=== PATIENT | female | born 1970 | race Caucasian/White ===

== ENCOUNTER → 2024-03-08 09:18 | Outpatient (REF) | payer BC, SELFPAY | LOC: WDC 09:18 | PROVIDERS: ATTENDING PHYSICIAN Obstetrics & Gynecology Gynecology; FAMILY PHYSICIAN Family Medicine | DX: Z12.31 Encounter for screening mammogram for malignant neoplasm of breast (principal) | CPT/HCPCS: 77063; 77067 ==

== ENCOUNTER 2024-03-22 16:40 | Inpatient (IN) | payer BC, SELFPAY ==
[2024-03-22 13:05] VITALS: BP 180/100
[2024-03-22 13:24] LABS: % Basophils 0.3 % (0-2); % Eosinophils 0.1 % (0-6); % Immature Granulocytes 0.4 % (0-0.5); % Lymphocytes 12.7 % (20.5-51.1); % Monocytes 5.6 % (1.7-9.3); % Neutrophils 80.9 % (42.2-75.2); Absolute Immature Granulocytes 0.1 10^3/uL (0-0.05); Absolute Lymphocytes 1.4 10^3/uL (1.2-3.4); Absolute Monocytes 0.6 10^3/uL (0.1-0.6); Absolute Neutrophils 9.1 10^3/uL (1.4-6.5); Hematocrit 45.6 % (37.0-47.0); Hemoglobin 16.2 g/dL (12.0-16.0); Mean Corp Hgb Conc. 35.5 g/dL (33.0-37.0); Mean Corpuscular Hgb 31.1 pg (27.0-31.0); Mean Corpuscular Volume 87.5 fL (81.0-99.0); Mean Platelet Volume 9.5 fL (7.4-10.4); Nucleated Red Blood Cells % 0 %; Platelet Count 213 10^3/uL (130-400); Red Blood Cell Count 5.21 10^6/uL (4.20-5.40); Red Cell Dist. Width 11.9 % (11.5-14.5); White Blood Cell Count 11.3 10^3/uL (4.8-10.8)
[2024-03-22 13:43] LABS: INR 1.05
[2024-03-22 13:44] LABS: APTT 31.3 Sec (23.4-35.0)
[2024-03-22 13:46] LABS: ALT (SGPT) 29 U/L (0-35); AST (SGOT) 33 U/L (14-36); Albumin 4.6 g/dl (3.5-5.0); Alkaline Phosphatase 63 U/L (38-126); Blood Urea Nitrogen 14 mg/dl (7-17); Calcium 9.4 mg/dl (8.4-10.2); Carbon Dioxide 19 mmol/L (22-30); Chloride 109 mmol/L (98-107); Glucose 113 mg/dl (70-99); Potassium 4.1 mmol/L (3.5-5.1); Sodium 138 mmol/L (135-145); Total Bilirubin 0.7 mg/dl (0.2-1.3); Total Protein 7.3 g/dl (6.3-8.2); eGFR > 60.00
--- NOTE | 2024-03-22 15:10 | ED.GENMED ---
History of Present Illness
General
Chief Complaint: Rectal Bleeding
Source: patient
Exam Limitations: none
Time Seen by Provider: 03/22/24 14:55
Nursing documentation reviewed up to this point in time: agreed with
History of Present Illness
History of Present Illness:
Patient to ED with complaint of bright red rectal bleeding. States she developed nausea last night. Edwards constipated and was only able to pass a small amt of hard stool. SHe woke at 2 AM with an episode diarrhea and vomiting. States she woke up a
few hours later and reports low abd cramping followed by passing blood with clots. SHe has had 4 additional episodes of passing blood. Last episode was on arrivall to ED room. Denies fever. No further vomiting. No prior history of same. No abd.
pain, just cramping prior to passing blood. Brought self to ED for eval.
Past History
Past History
ED Past Medical History: None
ED Past Surgical History: Appendectomy, and Gynecological (hysterectomy)
Social History
Tobacco: Former smoker
Alcohol: Occasional
Drug: None
Living: with family
Phy Exam
General Physical Exam
General Presentation: well appearing and no apparent distress
General age: appears stated age
General Skin: warm and dry
General Habitus: normal
General Mental: alert
General Hydration: appears well hydrated
Cardiovascular Exam
Cardiovascular Exam: regular rate/rhythm
Pulmonary Exam
Pulmonary Exam: no respiratory distress and chest non tender
Gastrointestinal Exam
Gastrointestinal Exam: normal bowel sounds, non tender, soft, no organomegaly, non distended, no cva tenderness and other (intermittent lower abd. cramping followed by passing bright red blood. 5 episodes)
Rectal Exam: normal sphincter tone and no stool (No blood)
Musculoskeletal Exam
Musculoskeletal Exam: full ROM and neuro vasc intact
Skin Exam
Skin Exam: normal color, warm/dry and no rash
Psychiatric Exam
Psychiatric Exam: normal mood/affect
Course
Orders/Labs/Results
Orders:
Orders
03/22/24 Breakfast
Clear Liquid
At Your Request: Full Participation
03/22/24 13:17
Type+Screen Urgent
Complete Blood Count/With Diff Urgent
Comprehensive Metabolic Panel Urgent
PTT Urgent
Prothrombin Time Urgent
03/22/24 16:11
0.9% Sodium Chloride 1000 ml [Nss] 1,000 ml IV BOLUS
03/22/24 16:13
Acetaminophen [Tylenol] 1,000 mg PO NOW STA
03/22/24 16:20
Consult Gastroenterology [GASTROINTESTINAL CONSULT] Urgent
Consulting Provider: Lilian Williamson
Was physician already notified: Yes
03/22/24 16:32
Stool Culture Urgent
SHIRA Source: Feces/Stool
Specimen Description:
Stool For WBC Urgent
SHIRA Source: Feces/Stool
Specimen Description:
03/22/24 16:33
Admit/Transfer Patient As Directed
Co-Sign Provider:
Level of Care: Inpatient admission
Assign to:: Telemetry
Physician / Group: Markos
Diagnosis: GI Bleed
Reason for Telemetry: Arrhythmia
Date to Stop Telemetry: 03/25/24
Time to Stop Telemetry: 11:00
Reason for Hospitalization: IVFs, GI consult
Expected length of stay greater than two midnights?: Yes
ELOS- Estimated Length of Stay in days: 3
I certify the patient meets the requirements for IP care: Yes
Norovirus by PCR Urgent
SHIRA Source: Feces/Stool
Specimen Description:
03/22/24 16:35
PRN Pain Medication Management As Directed
May give lesser potent ordered pain med per pt: Yes
preference::
Protocol:: Medication orders for pain may be administered in a
manner that supports deferring to patient preference
when the pt is:
- Requesting an ordered lesser potent pain medication.
Least to most potent pain medications are defined
as: acetaminophen < NSAID < tramadol < opioids
(morphine, oxycodone, hydromorphone).
- Requesting a lesser dose of the same medication IF
ORDERED.
- Requesting a less intrusive route of administration
if both routes are prescribed by the provider (PO <
IV).
03/22/24 16:36
Code Status As Directed
Resuscitation Status: Full Code
03/22/24 17:47
0.9% Sodium Chloride 1000 ml [Nss] 1,000 ml IV 100 mls/hr
Ondansetron Injectable [Zofran] 4 mg IV Q6HPRN PRN
03/22/24 17:47
Activity As Directed
Activity Level: Out of Bed- Chair
I&O [Intake/ Output] As Directed
Frequency: q12h
Pneumatic Compression Sleeves As Directed
Type: Knee high
Vital Signs As Directed
Frequency: Per unit guidelines
DX Deep Vein Thrombosis Video Routine
03/22/24 20:26
H&H Routine
03/22/24 23:00
Acetaminophen [Tylenol] 650 mg PO Q4HPRN PRN
03/23/24 Breakfast
NPO
Allow oral meds: Yes
Allow clear liquids: 4hrs prior to procedure
NPO with Ice Chips: Yes
Comment: may have unrestricted clear liquid up to 4 hrs prior to scheduled procedure
Basic Metabolic Panel IN AM
Complete Blood Count/No Diff IN AM
03/25/24 11:00
DC Protocol for Telemetry ONCE
Abnormal Lab Results
03/22/24
13:17
WBC 11.3 H 10^3/uL
(4.8-10.8)
Hgb 16.2 H g/dL
(12.0-16.0)
MCH 31.1 H pg
(27.0-31.0)
Abs Immat Gran (auto) 0.1 H 10^3/uL
(0-0.05)
Absolute Neuts (auto) 9.1 H 10^3/uL
(1.4-6.5)
Neutrophils % 80.9 H %
(42.2-75.2)
Lymphocytes % 12.7 L %
(20.5-51.1)
Chloride 109 H mmol/L
(98-107)
Carbon Dioxide 19 L mmol/L
(22-30)
Glucose 113 H mg/dl
(70-99)
03/22/24 13:17
03/22/24 13:17
Vital Signs
Initial and Last Documented VS:
Initial Vital Signs
Temp Pulse Resp BP Pulse Ox
98.2 F 114 16 180/100 98
03/22/24 13:05 03/22/24 13:05 03/22/24 13:05 03/22/24 13:05 03/22/24 13:05
Last Documented Vital Signs
Temp Pulse Resp BP Pulse Ox
98.6 F 84 16 145/80 96
03/22/24 19:25 03/22/24 19:25 03/22/24 19:25 03/22/24 19:25 03/22/24 19:25
*Critical Care Note
Total Time (30-74mins, 75-104mins- exclusive of procedures): Not Applicable
Update Note
Update Note:
Patient to ED with complaint of bright red rectal bleeding with clots. Symptoms started early AM today and continue. No abdominal pain but reports transient lower abd. cramping. VSS, Afebrile. Hgb 11.4. Dr. Williamson notified via tiger text.
Will admit to hospitalist service with GI consult. Patient is agreeable to plan.
ED Attending Note
-
Portions of this chart may have been created with voice recognition software.� Occasional wrong word or��sound alike� substitutions may have occurred due to the inherent limitations of voice recognition software.
Discharge Plan
Departure
Patient Disposition: Admit
Date of Disposition: 03/22/24
Time of Disposition: 16:13
Presentation/result/management discussed w/ accepting MD/DO: Hospitalist
Patient with high blood pressure during this ER visit?: No
Condition: Fair
Covid-19: Not Applicable
Discharge Problem:
Rectal bleeding
Interventions
Interventions:
*Risk Screen - Suicide Last Done: 03/22/24 18:47
*General Assessment Last Done: 03/22/24 13:05
*Neglect/Abuse Screening Last Done: 03/22/24 13:05
ED- Fall Risk Assessment Last Done: 03/22/24 15:01
*ED COVID-19 Vaccine History Last Done: 03/22/24 18:47
*Nursing Disposition Last Done: 03/22/24 17:39
TJ-Slxwkr-Ghkbvpcodl Assessment Last Done: 03/22/24 15:01
ED- Cardiac Assessment Last Done: 03/22/24 15:01
ED- Pulmonary Assessment Last Done: 03/22/24 15:01
Discharge Date and Time
Discharge Date/Time: 03/22/24 17:39
[2024-03-22 16:26] VITALS: BP 150/68
[2024-03-22] MEDS: TYLENOL 1000 MG PO (16:29)
[2024-03-22] MEDS: NSS 1000 IV ×2 (16:30→18:45)
--- NOTE | 2024-03-22 16:33 | HPS.HSE ---
Family Physician
-
Family Physician: Yasmeen Navarro
Chief Complaint
-
Recal Bleeding
History of Present Illness
Patient is a 53 y/o female without significant past medical history who presents with rectal bleeding. Patient reports she awoke around 2am with vomiting. She then developed abdominal pain and felt like she was going to have diarrhea, but passed a
large amount of blood and clots. She reports about 6 episodes of passing blood since this morning. She reports bleeding seems less, but still passing some. She reports initially having sweats/chills, but did not take her temp at home. She
reports family member with GI symptoms last week. She recently completed a coarse of ciprofloxacin for UTI. She denies any usual food intake.
Medical History
Past Medical History
Past Medical History: Reports Other
Additional Past Medical History:
Obesity
Past Surgical History: Reports Other
Additional Past Surgical History:
Hysterectomy
Appendectomy
Oral Surgery
Social History
Tobacco: Former Smoker (Quit about 15 years ago)
Alcohol: Occasional (About once a month)
Personal:
Living: With Family
Family History
Family History: Other (Parents with diverticular disease)
Allergies / Home Medications
Allergies reflects when Allergies were last updated in [employer]
Home Medications with original date entered in [employer]
Allergy/Medication List:
Allergies
Allergy/AdvReac Type Severity Reaction Status Date / Time
levofloxacin [From Levaquin] Allergy Hives Verified 03/22/24 13:09
minerals [From Enviro Stress] Allergy Unknown Verified 03/22/24 13:09
nitrofurantoin Allergy Hives Verified 03/22/24 13:09
[From Macrobid]
papaya [Papaya] Allergy Hives Verified 03/22/24 13:09
Sulfa (Sulfonamide Allergy Hives Verified 03/22/24 13:09
Antibiotics)
[Sulfa (Sulfonamides)]
vitamin B complex and C Allergy Unknown Verified 03/22/24 13:09
[From Enviro Stress]
vitamin E (d-alpha Allergy Unknown Verified 03/22/24 13:09
tocopherol)
[From Enviro Stress]
Home Medications
cetirizine 10 mg tablet (Zyrtec) 10 mg PO DAILYPRN PRN allergies 03/22/24
tirzepatide (weight loss) 2.5 mg/0.5 mL subcutaneous pen injector (Zepbound) 2.5 mg SC MO 03/22/24
Review of Systems
-
A 12 point ROS was completed and negative except as noted: Yes
Constitutional: Reports Chills
Respiratory: Denies Cough or Trouble Breathing
Cardiac: Denies Chest Pain or Palpitations
Physical Exam
Vital Signs
Vital Signs
Temp Pulse Resp BP Pulse Ox
98.2 F 114 16 180/100 98
03/22/24 13:05 03/22/24 13:05 03/22/24 13:05 03/22/24 13:05 03/22/24 13:05
Physical Exam
General: Comfortable and Conversant
HEENT: Anicteric and Moist mucous membranes
Respiratory: Clear and Non Labored Respirations
Cardiac: S1/S2, Regular Rhythm and Tachycardia (Slightly)
GI: Soft and Non Tender
Musculoskeletal: No Clubbing, No Cyanosis and No Edema
Skin: Warm and Dry
Neuro: Awake, Alert, Oriented and Nonfocal/grossly intact
Psych: Calm
Laboratory Results
-
03/22/24 13:17
03/22/24 13:17
Laboratory Results
PT 14.0 Sec (11.4-14.6) 03/22/24 13:17
INR 1.05 03/22/24 13:17
APTT 31.3 Sec (23.4-35.0) 03/22/24 13:17
Total Bilirubin 0.7 mg/dl (0.2-1.3) 03/22/24 13:17
AST 33 U/L (14-36) 03/22/24 13:17
ALT 29 U/L (0-35) 03/22/24 13:17
Alkaline Phosphatase 63 U/L (38-126) 03/22/24 13:17
Data Reviewed
-
Lab Data: Labs Reviewed by me
Impression/Plan
-
Hematochezia, suspect infectious possibly C Diff following recent antibiotics vs diverticular (patient reports family history of diverticular disease but has never had colonoscopy herself)
-Consult GI
-Check stool culture, stool for norovirus and C Diff
-Allow clear liquids
-Monitor serial Hgb
Obesity
-Patient recently started Zepbound
DVT proph: SCDs
Code Status: Full Code
--- NOTE | 2024-03-22 17:19 | W.PN.UPDATE ---
Update Note
Progress Note Update
This note serves as an addendum to the H&P by ophthalmic technician TOBIN Connie RUTH
HPI
53F with recent UTI s/p 7 days of PO Ciproflox as of yesterday seen at ER'
- first episode of blood per rectum mixed with clot and small amount of feces with mucous
- No prior HX hemorrhoids
- One episodes of vomiting preceded the abdominal discomfort and colic followed blood mixed with mucou small feces per rectum
- denied lightheadedness
- No recent seafood meals
- no prior HX GIB
- no prior HX CDAD
- Not on blood thinner
- No recent travelling
- FHX of diverticulosis
Vital Signs
Temp Pulse Resp BP Pulse Ox
98.2 F 114 16 150/68 96
03/22/24 13:05 03/22/24 13:05 03/22/24 13:05 03/22/24 16:26 03/22/24 16:45
PE
General: Comfortable and Conversant
HEENT: Anicteric and Moist mucous membranes
Respiratory: Clear and Non Labored Respirations
Cardiac: S1/S2, Regular Rhythm and Tachycardia (Slightly)
GI: Soft and Non Tender
Musculoskeletal: No Clubbing, No Cyanosis and No Edema
Skin: Warm and Dry
Neuro: Awake, Alert, Oriented and Nonfocal/grossly intact
Psych: Calm
Laboratory Tests
03/22/24
13:17
WBC 11.3 H
Hgb 16.2 H
Chloride 109 H
Carbon Dioxide 19 L
eGFR > 60.00
ASSESSMENT & PLAN
Acute LGIB suspect mucous hematochezia DDX : C Diff colitis, Colitis NOS
Leucocytosis but afebrile
Tachycardic , Normotensive
- stool for C Diff till then hold of PO Vancomycin
- stool for Cx
- clear diet plus IVF
- Avoid anti diarrheal agents
- GI consult
Obesity
- hold Zebound ( Non formulary )
DVT Px: SCD
full code
Ip TLM
[2024-03-22 18:04] VITALS: BP 132/77
[2024-03-22 19:25] VITALS: BP 145/80
[2024-03-22 20:31] LABS: Hematocrit 45.4 % (37.0-47.0); Hemoglobin 15.3 g/dL (12.0-16.0)
[2024-03-22 23:09] VITALS: BP 119/70
--- NOTE | 2024-03-23 01:01 | PTCARENOTE ---
Assumed care of patient at change of shift. AAOx3 VSS. Pt aware of stool sample to be collected. Denies abd pain at this time. Oriented to room, call muñoz and plan of care. NPO @ OR.
[2024-03-23] MEDS: TYLENOL 650 MG PO ×3 (02:15→20:26)
[2024-03-23 03:10] VITALS: BP 116/71
[2024-03-23] MEDS: NSS 1000 IV ×2 (05:07→15:05)
[2024-03-23 07:33] VITALS: BP 123/71
[2024-03-23 07:36] LABS: Hematocrit 42.2 % (37.0-47.0); Hemoglobin 14.3 g/dL (12.0-16.0); Mean Corp Hgb Conc. 33.9 g/dL (33.0-37.0); Mean Corpuscular Volume 91.5 fL (81.0-99.0); Mean Platelet Volume 9.5 fL (7.4-10.4); Platelet Count 194 10^3/uL (130-400); Red Blood Cell Count 4.61 10^6/uL (4.20-5.40); Red Cell Dist. Width 12.3 % (11.5-14.5); White Blood Cell Count 8.5 10^3/uL (4.8-10.8)
[2024-03-23 07:48] LABS: Blood Urea Nitrogen 8 mg/dl (7-17); Calcium 8.4 mg/dl (8.4-10.2); Carbon Dioxide 21 mmol/L (22-30); Chloride 112 mmol/L (98-107); Estimated Creatinine Clearance 107 ml/min; Glucose 95 mg/dl (70-99); Potassium 3.9 mmol/L (3.5-5.1); Sodium 140 mmol/L (135-145); eGFR > 60.00
--- NOTE | 2024-03-23 08:56 | CON.GI ---
Consultation
-
Date/Time Consultation Requested: 03/23/24
Date/Time Consultation Performed: 03/23/24
Requesting Provider:
Performing Provider:
Reason for Consultation: rectal bleeding
Medical History
Chief Complaint / HPI
Chief Complaint: rectal bleeding
History of Present Illness:
This is a 53-year-old female with no significant past medical history other than recent UTI which was treated with ciprofloxacin and she finished this on Friday, family history of colon cancer-mother, prediabetic and obesity and was started on
Zepbound about 3 weeks ago who was in her usual state of health up until yesterday morning when she woke up around 4 AM and felt that she needed to use the bathroom and initially had small hard pellets of stool and then had diarrhea followed by
bloody stools. She had about 3 episodes of bloody stools presented to the emergency room and her last episode of rectal bleeding was at 4 PM yesterday. She also had vomiting yesterday which seems to have resolved. She denies any fevers or chills
no recent travel and she denies eating out recently but she does have chickens at home and she usually eats eggs from her poultry. Her daughter was sick with gastroenteritis about a week ago. She has never had a colonoscopy in the past. Currently
denies any abdominal pain, yesterday she did have cramps prior to the diarrhea. Usually only has occasional constipation prior to starting Zepbound. Denies any symptoms of reflux
Past Medical History
Past Medical History: Other (prediabetic, obesity, UTI)
Past Surgical History: Other (Hysterectomy, Appendectomy, Oral Surgery)
Social History
Tobacco: Former Smoker
Alcohol: Occasional
Drug: None
Personal:
Living: With Family
Family History
Family History: Other (mother with lung and colon cancer, MGM breast cancer)
Allergies / Home Medications
Allergy/AdvReac Type Severity Reaction Status Date / Time
levofloxacin [From Levaquin] Allergy Hives Verified 03/22/24 13:09
minerals [From Enviro Stress] Allergy Unknown Verified 03/22/24 13:09
nitrofurantoin Allergy Hives Verified 03/22/24 13:09
[From Macrobid]
papaya [Papaya] Allergy Hives Verified 03/22/24 13:09
Sulfa (Sulfonamide Allergy Hives Verified 03/22/24 13:09
Antibiotics)
[Sulfa (Sulfonamides)]
vitamin B complex and C Allergy Unknown Verified 03/22/24 13:09
[From Enviro Stress]
vitamin E (d-alpha Allergy Unknown Verified 03/22/24 13:09
tocopherol)
[From Enviro Stress]
�Medication �Instructions �Recorded
cetirizine 10 mg tablet (Zyrtec) 10 mg PO DAILYPRN PRN allergies 03/22/24
tirzepatide (weight loss) 2.5 2.5 mg SC MO (GLP-1) Receptor 03/22/24
mg/0.5 mL subcutaneous pen Agonist
injector (Zepbound)
Review of Systems
-
All other systems: A 12 pt ROS was Negative except as stated above in HPI
Vital Signs
Temp Pulse Resp BP Pulse Ox
98.3 F 84 20 123/71 96
03/23/24 07:33 03/23/24 07:33 03/23/24 07:33 03/23/24 07:33 03/23/24 07:33
Physical Exam
Exam
General: No Apparent Distress
HEENT: Normocephalic
Respiratory: Clear
Cardiac: S1/S2
GI: Soft, Non Tender, Non Distended and Normal Bowel Sounds
Musculoskeletal: No Clubbing
Skin: Warm
Neuro: Awake, Alert and Oriented
Psych: Calm
Results
WBC 8.5 10^3/uL (4.8-10.8) 03/23/24 06:56
Hgb 14.3 g/dL (12.0-16.0) 03/23/24 06:56
Hct 42.2 % (37.0-47.0) 03/23/24 06:56
MCV 91.5 fL (81.0-99.0) 03/23/24 06:56
Plt Count 194 10^3/uL (130-400) 03/23/24 06:56
Absolute Neuts (auto) 9.1 10^3/uL (1.4-6.5) H 03/22/24 13:17
PT 14.0 Sec (11.4-14.6) 03/22/24 13:17
INR 1.05 03/22/24 13:17
APTT 31.3 Sec (23.4-35.0) 03/22/24 13:17
Sodium 140 mmol/L (135-145) 03/23/24 06:56
Potassium 3.9 mmol/L (3.5-5.1) 03/23/24 06:56
Chloride 112 mmol/L (98-107) H 03/23/24 06:56
Carbon Dioxide 21 mmol/L (22-30) L 03/23/24 06:56
BUN 8 mg/dl (7-17) 03/23/24 06:56
Creatinine 0.7 mg/dL (0.6-1.0) 03/23/24 06:56
Calcium 8.4 mg/dl (8.4-10.2) 03/23/24 06:56
Total Bilirubin 0.7 mg/dl (0.2-1.3) 03/22/24 13:17
AST 33 U/L (14-36) 03/22/24 13:17
ALT 29 U/L (0-35) 03/22/24 13:17
Alkaline Phosphatase 63 U/L (38-126) 03/22/24 13:17
Diagnostic Image Results:
Prior GI Procedures:
EGD: none
Colonoscopy: none
Assessment / Plan
-
1. Nausea vomiting diarrhea followed by bloody stools most likely infectious etiology. She was also recently on ciprofloxacin will need to rule out C. difficile if she does have further episodes check stool studies, she has not had any episodes
since 4 PM yesterday. Will start her on clear liquids and advance if tolerates to low residue diet and if she has no further episodes possible DC in a.m. she is currently on IV hydration continue Zofran as needed. She will need an eventual
colonoscopy in 6 to 8 weeks.
2. Family history of colon cancer(mother) she has never had a colonoscopy in the past and will schedule in the next couple of weeks
3. She has been recently started on Zepbound and has mild constipation with it, I told her to start taking MiraLAX or magnesium as outpatient as needed she really had no symptoms of nausea vomiting on Zepbound prior to this acute illness
-
-
Thank you for consultation and allowing me to participate in the patient's care. Please call the media production support manager GI physician during the after hours with any questions or concerns.
--- NOTE | 2024-03-23 10:40 | W.PN.HOSP.TC ---
Today's Communication/Plan
-
ADAT
Monitor H&H
Stool studies if possible
Assessment / Plan
Assessment / Plan
Patient is a 53-year-old female presenting with nausea /vomiting, diarrhea over the past few days followed by urgency for defecation with GI bleeding per rectum (in the form of mixed clots and mucus). She recently had a UTI and was treated with
Cipro x 7(finished course 04/21). Hemodynamic stable in ED except for mild tachycardia. Hemoglobin stable.
Chronic conditions prior to admission:
Obesity
Pre-diabetic
History of hysterectomy, appendectomy,
Ass/plan:
# New onset hematochezia
- Differential diagnosis includes inflammatory (UC/ Chron's) versus infectious etiology (C.diff given recent antibiotic use vs colitis)
- No nausea/ vomiting at this time- on clear liquids- can ADAT
- No more GIB since being in the hospital
- GI consulted- given FH of malignant colon polyps requiring bowel resection in mother, patient will need a colonoscopy in 6-8 weeks as OP
- If patient can provide sample, stool studies can be beneficial
#Headache
-Tylenol as needed
Anticipated Discharge: Within 24 hours
Subjective/Interval History
-
Date of Service: March 23, 2024
Patient has not had any bowel movements or any GI bleeding since coming to the hospital. She denies any nausea or vomiting at this time. Denies any abdominal pain. With this complaint of occasional cramps. Also complains of a frontal headache
that responds to Tylenol.
Objective Data
-
Labs:
Laboratory Results
03/23/24
06:56
WBC 8.5
Hgb 14.3
Hct 42.2
Plt Count 194
Sodium 140
Potassium 3.9
Chloride 112 H
Carbon Dioxide 21 L
BUN 8
Creatinine 0.7
Glucose 95
Calcium 8.4
Vital Signs:
Vital Signs
Temp Pulse Resp BP Pulse Ox
98.3 F 84 20 123/71 96
03/23/24 07:33 03/23/24 07:33 03/23/24 07:33 03/23/24 07:33 03/23/24 09:00
I&O
03/22/24 03/23/24 03/24/24
06:59 06:59 06:59
Intake Total 820 / 820
Balance 820 / 820
Review of Systems
-
History Source: Patient
All other systems: Reviewed and negative
Abdomen/GI: Reports Pain (abdominal cramps)
Neuro: Reports Headache (frontal headache)
Physical Exam
-
General: Well Developed, Well Nourished, No Apparent Distress, Comfortable and Obese
HEENT: Normocephalic, Moist Mucous Membranes and Anicteric
Respiratory: Clear to Auscultation
Cardiac: Regular Rhythm and S1/S2
GI: Soft, Nontender, Nondistended and Normal Bowel Sounds
Musculoskeletal: No Clubbing, No Cyanosis and No Edema
Skin: Warm and Dry
Neuro: Awake, Alert, Oriented and AO x 3
[2024-03-23 11:18] VITALS: BP 124/68
--- NOTE | 2024-03-23 13:34 | W.PN.UPDATE ---
Update Note
Progress Note Update
I saw and evaluated the patient. I reviewed the resident�s note and agree with findings and plan as documented in the resident�s note.
Patient reports some gas discomfort. No bowel movement since the ER.
Gen: NAD, AAOx3.
Eyes: EOMI, PERRLA, no scleral icterus.
Neck: supple.
CV: RRR, +S1/S2, no m/r/g.
Resp: CTAB, no rales, wheezes, or rhonchi.
Abd: +BS, soft, NT, ND
Skin: No rashes.
Neuro: CN 2-12 intact, non-focal.
Psych: Normal mood and affect.
Bright red blood per rectum:
-Hb stable
-seen by GI, no procedures planned this admission
-Diet advanced to clear liquids
-Continue IVF support for now
-check Hb in AM
Obesity due to excess calories
Dispo: Likely d/c tomorrow.
[2024-03-23 15:19] VITALS: BP 127/80
--- NOTE | 2024-03-23 15:59 | CM ---
staffing manager reviewed patient's chart and met with patient and patient states that she lives with spouse in a 2 story home, patient is independent with adl's and ambulation, no dme, patient drives.
PCP: Dr. Yasmeen Navarro
Pharmacy [facility] [place]
Plan; Home when stable no needs.
[2024-03-23 19:25] VITALS: BP 117/76
[2024-03-23 23:21] VITALS: BP 114/58
[2024-03-24] MEDS: NSS 1000 IV (01:13)
[2024-03-24 03:30] VITALS: BP 111/75
[2024-03-24 07:44] VITALS: BP 112/86
[2024-03-24 09:00] LABS: Hemoglobin 14.6 g/dL (12.0-16.0); Mean Corp Hgb Conc. 33.2 g/dL (33.0-37.0); Mean Corpuscular Hgb 30.7 pg (27.0-31.0); Mean Corpuscular Volume 92.6 fL (81.0-99.0); Mean Platelet Volume 9.3 fL (7.4-10.4); Platelet Count 189 10^3/uL (130-400); Red Blood Cell Count 4.75 10^6/uL (4.20-5.40); Red Cell Dist. Width 12.1 % (11.5-14.5); White Blood Cell Count 7.3 10^3/uL (4.8-10.8)
--- NOTE | 2024-03-24 09:17 | W.PN.HOSP.TC ---
Today's Communication/Plan
-
Patient is medically stable for discharge today
Advised to follow-up with GI clinic in 6 to 8 weeks for outpatient colonoscopy
Assessment / Plan
Assessment / Plan
Patient is a 53-year-old female presenting with nausea /vomiting, diarrhea over the past few days followed by urgency for defecation with GI bleeding per rectum (in the form of mixed clots and mucus). She recently had a UTI and was treated with
Cipro x 7(finished course 04/21). Hemodynamic stable in ED except for mild tachycardia. Hemoglobin stable.
Chronic conditions prior to admission:
Obesity
Pre-diabetic
History of hysterectomy, appendectomy,
Ass/plan:
# New-onset hematochezia and nausea/vomiting
- Differential diagnosis includes inflammatory (UC/ Chron's) versus infectious etiology (C.diff given recent antibiotic use vs colitis)
- Nausea/ vomiting resolved-diet advanced to low residue yesterday-patient has been able to tolerate diet well
- GIB resolved since being in the hospital-No bowel movements while admitted
- Hemoglobin has been stable throughout stay without any drop
- Leukocytosis resolved
- GI consulted- given FH of malignant colon polyps requiring bowel resection in mother, patient will need a colonoscopy in 6-8 weeks as OP
- If patient could provide sample, stool studies might have been beneficial
- IV fluids can be discontinued
#Headache
-Tylenol as needed
Anticipated Discharge: Today
Subjective/Interval History
-
Date of Service: March 24, 2024
Patient mentions she is feeling good. Has not had any bowel movements during stay but does pass gas. Has not seen any more GI bleeding. No nausea or vomiting and has been tolerating low residue diet well. Denies any abdominal pain, fever or
chills.
Objective Data
-
Labs:
Laboratory Results
03/24/24
08:22
WBC 7.3
Hgb 14.6
Hct 44.0
Plt Count 189
Sodium Pending
Potassium Pending
Chloride Pending
Carbon Dioxide Pending
BUN Pending
Creatinine Pending
Glucose Pending
Calcium Pending
Vital Signs:
Vital Signs
Temp Pulse Resp BP Pulse Ox
98.2 F 78 14 112/86 99
03/24/24 07:44 03/24/24 07:44 03/24/24 07:44 03/24/24 07:44 03/24/24 07:44
I&O
03/23/24 03/24/24 03/25/24
06:59 06:59 06:59
Intake Total 820 / 820 2640 / 2640
Output Total 480 / 480
Balance 820 / 820 2160 / 2160
Review of Systems
-
History Source: Patient
All other systems: Reviewed and negative
Physical Exam
-
General: Well Developed, Well Nourished, No Apparent Distress, Comfortable and Obese
HEENT: Normocephalic, Moist Mucous Membranes and Anicteric
Respiratory: Clear to Auscultation
Cardiac: Regular Rhythm and S1/S2
GI: Soft, Nontender, Nondistended and Normal Bowel Sounds
Musculoskeletal: No Clubbing, No Cyanosis and No Edema
Skin: Warm and Dry
Neuro: Awake, Alert, Oriented and AO x 3
--- NOTE | 2024-03-24 09:17 | W.PN.HOSP.TC ---
Today's Communication/Plan
-
d/c
Assessment / Plan
Assessment / Plan
Gen: NAD, AAOx3.
Eyes: EOMI, PERRLA, no scleral icterus.
Neck: supple.
CV: remains RRR, +S1/S2, no m/r/g.
Resp: remains CTAB, no rales, wheezes, or rhonchi.
Abd: remains +BS, soft, NT, ND
Skin: No rashes.
Neuro: CN 2-12 intact, non-focal.
Psych: Normal mood and affect.
Bright red blood per rectum:
-Hb stable
-s/p IVFs
-seen by GI, no procedures planned this admission
-pt tolerating solid food
-agree with GI that this was infectious in etiology. Case discussed with Dr. Williamson and the pt is cleared for d/c with outpt follow up for colonoscopy.
Obesity due to excess calories
Total time spent on d/c = 31 min. This included today's physical exam, progress note, review of laboratory and diagnostic data, preparation of discharge documents and prescriptions, and discussions about the pt's hospital course and discharge plan
with the patient and other medical supervisor involved in the patient's care.
Anticipated Discharge: Today
Subjective/Interval History
-
Date of Service: March 24, 2024
No BM yet. Tolerating diet. No new complaints.
Objective Data
-
Labs:
Laboratory Results
03/24/24
08:22
WBC 7.3
Hgb 14.6
Hct 44.0
Plt Count 189
Sodium Pending
Potassium Pending
Chloride Pending
Carbon Dioxide Pending
BUN Pending
Creatinine Pending
Glucose Pending
Calcium Pending
Vital Signs:
Vital Signs
Temp Pulse Resp BP Pulse Ox
98.2 F 78 14 112/86 99
03/24/24 07:44 03/24/24 07:44 03/24/24 07:44 03/24/24 07:44 03/24/24 07:44
I&O
03/23/24 03/24/24 03/25/24
06:59 06:59 06:59
Intake Total 820 / 820 2640 / 2640
Output Total 480 / 480
Balance 820 / 820 2160 / 2160
[2024-03-24 09:31] LABS: Blood Urea Nitrogen 7 mg/dl (7-17); Calcium 8.5 mg/dl (8.4-10.2); Carbon Dioxide 19 mmol/L (22-30); Chloride 111 mmol/L (98-107); Estimated Creatinine Clearance > 125 ml/min; Glucose 115 mg/dl (70-99); Potassium 3.9 mmol/L (3.5-5.1); Sodium 140 mmol/L (135-145); eGFR > 60.00
--- NOTE | 2024-03-24 10:17 | W.DCSUMMARY ---
Addendum entered and electronically signed by Sebastian Bradshaw MD 03/24/24 13:24:
Read, reviewed, and agree. See same day progress note for additional details.
Original Note:
Discharge Summary
Discharge Data
Date of Admission: 03/22/24
Date of Discharge: 03/24/24
-
Pending Results: No
Hospital Course
Patient is a 53-year-old female presenting with nausea and vomiting one day prior to admission, followed by loose stool mixed with blood clots and mucus. She recently had a UTI and was treated with Cipro for 7 days (finished course 03/21). Patient
does report daughter having similar symptoms about a week ago.
hemodynamics were stable in ED except for mild tachycardia. Hemoglobin was stable at 16.2. Mild leukocytosis was present on admission. Patient was started on IV fluids and admitted for further evaluation of new-onset hematochezia.
During course of hospital stay, patient did not have any more nausea, vomiting, diarrhea. Also, no further GI bleeding was noted. Hemoglobin remained stable during stay without any drop. Leukocytosis resolved. GI was consulted and visited
patient daily. Given symptom improvement, diet was advanced and patient could tolerate diet well before discharge. Stool samples could not be sent due to no bowel movement during stay but per GI, etiology of symptoms was likely infectious. Given
family history of malignant colon polyps in mother, she will require colonoscopy in 6 to 8 weeks as outpatient.
Today, patient is medically stable for discharge to home. She has been advised to follow-up with Dr. Williamson in 1 to 2 weeks, as well as to follow-up with her family doctor.
Discharge Plan
-
Patient Disposition: Home (Routine Discharge)
Discharge Diagnosis/Procedures: Lower gastrointestinal bleeding, bright red blood per rectum, likely infectious
Condition: Good
Diet: No restrictions
Activity: No restrictions
Driving Restrictions: As prior to admission
Bathing Restrictions: None
Blood Work: CBC and BMP in 1 week, prescription from PCP
Referrals:
Lilian Williamson MD [Active] - in one to two weeks
Yasmeen Navarro MD [Family Provider] - in less than 1 week
Prescriptions:
Continued
cetirizine [Zyrtec] 10 mg Tablet
10 mg PO DAILYPRN PRN (Reason: allergies)
Zepbound 2.5 mg/0.5 mL Pen Injector
2.5 mg SC MO
Rx Instructions:
for 4 weeks
Discharge Orders:
Discharge Patient (As Directed); Ordered 03/24/24
Ordered By: Sebastian Bradshaw
Discharge Date and Time
Print Language: CZECH
--- NOTE | 2024-03-24 10:46 | W.PN.GI.CBS2 ---
Today's Communication / Plan
-
DC home
OP colo 6 to 8 weeks
Assessment / Plan
-
1. Nausea vomiting diarrhea followed by bloody stools most likely infectious etiology. Symptoms have resolved without antibiotic use. Hemoglobin remained stable unable to collect stool samples since she has not had any diarrhea since admission
doubt C. difficile. [facility] in 6 to 8 weeks.
2. Family history of colon cancer(mother) she has never had a colonoscopy in the past and will schedule in the next couple of weeks
3. She has been recently started on Zepbound and has mild constipation with it, I told her to start taking MiraLAX or magnesium as outpatient as needed she really had no symptoms of nausea vomiting on Zepbound prior to this acute illness
Subjective
Subjective
Date of Service: March 24, 2024
No further diarrhea or rectal bleeding, nausea vomiting also has resolved tolerating diet, hemoglobin stable
Objective
Data Reviewed
Laboratory Data:
Laboratory Results
03/24/24 08:22
03/24/24 08:22
Laboratory Results
PT 14.0 Sec (11.4-14.6) 03/22/24 13:17
INR 1.05 03/22/24 13:17
APTT 31.3 Sec (23.4-35.0) 03/22/24 13:17
Total Bilirubin 0.7 mg/dl (0.2-1.3) 03/22/24 13:17
AST 33 U/L (14-36) 03/22/24 13:17
ALT 29 U/L (0-35) 03/22/24 13:17
Alkaline Phosphatase 63 U/L (38-126) 03/22/24 13:17
Vital Signs and I&O:
Vital Signs
Temp Pulse Resp BP Pulse Ox
98.2 F 78 14 112/86 99
03/24/24 07:44 03/24/24 07:44 03/24/24 07:44 03/24/24 07:44 03/24/24 07:44
I&O
03/23/24 03/24/24 03/25/24
06:59 06:59 06:59
Intake Total 820 / 820 2640 / 2640
Output Total 480 / 480
Balance 820 / 820 2160 / 2160
Physical Exam
Physical Exam
Cardiology: Normal Sinus Rhythm
Pulmonary: Clear
GI: Soft, Non Distended, Non Tender and Normal Bowel Sounds
[2024-03-24 11:00] VITALS: BP 130/75
--- NOTE | 2024-03-24 11:23 | CM ---
Patient seen at bedside. Patient indicated that she has no needs for discharge and has a ride home. Patient for discharge today. CM will continue to follow for discharge planning needs.
Plan; home with no needs anticipated.
== END 2024-03-24 13:53 | disposition home or self-care (01) | DRG 378 ==
LOC: 4 WEST ACU 16:40
PROVIDERS: Emergency Medicine; Physician Assistant Medical; Student in an Organized Health Care Education/Training Program; ADMITTING PHYSICIAN Internal Medicine; ATTENDING PHYSICIAN Internal Medicine; CONSULT PHYSICIAN Internal Medicine Gastroenterology; EMERGENCY PHYSICIAN Student in an Organized Health Care Education/Training Program; FAMILY PHYSICIAN Family Medicine
DX: K92.2 Gastrointestinal hemorrhage, unspecified (principal); A09 Infectious gastroenteritis and colitis, unspecified; Z87.891 Personal history of nicotine dependence; E66.9 Obesity, unspecified; Z68.36 Body mass index [BMI] 36.0-36.9, adult
CPT/HCPCS: 80048; 80053; 85014; 85018; 85025; 85027; 85610; 85730; 86850; 86900; 86901; 96360; 97161; 99285

== ENCOUNTER 2024-05-12 06:26 | Day surgery (SDC) | payer BC, SELFPAY | END 2024-05-12 10:58 | disposition home or self-care (01) | LOC: GI 06:26 | PROVIDERS: ATTENDING PHYSICIAN Internal Medicine Gastroenterology | DX: Z12.11 Encounter for screening for malignant neoplasm of colon (principal); K57.30 Diverticulosis of large intestine without perforation or abscess without bleeding; K63.5 Polyp of colon; Z80.0 Family history of malignant neoplasm of digestive organs | CPT/HCPCS: 45385; 88305 ==

== ENCOUNTER → 2025-03-14 09:05 | Outpatient (REF) | payer BC, SELFPAY | LOC: WDC 09:05 | PROVIDERS: ATTENDING PHYSICIAN Obstetrics & Gynecology Gynecology; FAMILY PHYSICIAN Family Medicine | DX: Z12.31 Encounter for screening mammogram for malignant neoplasm of breast (principal) | CPT/HCPCS: 77063; 77067 ==